=== PATIENT | female | born 1950 | race Caucasian/White ===

== ENCOUNTER → 2020-04-13 10:21 | Outpatient (BNVA) | payer MEDICARE, SELFPAY | PROVIDERS: PCP Internal Medicine Sports Medicine; Referring Provider Internal Medicine Sports Medicine; Visit Provider Surgery | DX: Z48.815 Encounter for surgical aftercare following surgery on the digestive system (principal) | CPT/HCPCS: 99024; 99212 ==

== ENCOUNTER → 2020-04-27 10:04 | Outpatient (BNVA) | payer MEDICARE, SELFPAY | PROVIDERS: PCP Internal Medicine Sports Medicine; Visit Provider Surgery | DX: Z09 Encounter for follow-up examination after completed treatment for conditions other than malignant neoplasm (principal); Z87.19 Personal history of other diseases of the digestive system; Z90.49 Acquired absence of other specified parts of digestive tract | CPT/HCPCS: 99212 ==

== ENCOUNTER 2021-07-10 08:08 | Outpatient (REF) | payer MEDICARE, SELFPAY | END 2021-07-10 08:09 | disposition home or self-care (01) | LOC: HO.HMGCLDS 08:08 | PROVIDERS: Visit Provider Internal Medicine | DX: Z20.822 Contact with and (suspected) exposure to COVID-19 (principal) | CPT/HCPCS: C9803; U0003; U0005 ==

== ENCOUNTER 2023-07-18 14:23 | Emergency (ER) | payer MEDICARE, SELFPAY ==
--- NOTE | ~2023-07-18 | XR_ITS ---
EXAMINATION: XR LUMBOSACRAL SPINE CLINICAL INFORMATION: Lumbar pain COMPARISON: CT scan abdomen pelvis March 29, 2020 TECHNIQUE: 2 views of lumbar spine FINDINGS: Lumbar vertebrae have normal height and alignment. No fracture or bone destruction. Lumbar disc heights are normal. Mild degenerative facet joint arthrosis at the lower lumbar spine. Normal sacroiliac joints. Vascular calcification of the distal aorta without evidence of aneurysm. Surgical clips right upper quadrant of abdomen. XR/XR lumbar spine 2-3V IMPRESSION: 1. No acute abnormality. 2. Mild degenerative spondylosis of lumbar spine.
[2023-07-18 14:29] VITALS: BP 155/79; PULSE 89; RESP 16; TEMP 37.4; O2SAT 97; BMI 28.3
--- NOTE | 2023-07-18 14:44 | ED_ITS ---
HPI - Back Pain/Injury General Chief Complaint: Back Pain/Injury Stated Complaint: back pain Time Seen by Provider: 07/18/23 15:30 Source: patient and family (friend) Mode of arrival: wheelchair Limitations: no limitations History of Present Illness HPI Narrative: 73 year-old female with history of sciatic nerve injury and bilateral neuropathy arrives to emergency department with worsening right buttocks pain that radiates down the front and back of her thigh for three weeks since 06/27/2023. She states she had no inciting accidents or falls. The patient states she is unable to ambulate and perform daily activities due to the pain. Unlike prior episodes of sciatic pain, she reports her current pain has not resolved. Gabapentin, NSAIDs, and prednisone have not provided any relief. She denies fever, malaise, night sweats, weight loss, chest pain, palpitations, shortness of breath, dyspnea, lightheadedness, dizziness, changes in vision, loss of vision, double vision, changes in bowel movements, nausea, vomiting, and changes in urination. Pertinent past history: other (prior sciatic nerve pain) Onset (ago): week(s) (3 weeks) Timing: constant Quality: tingling and other (pinching) Radiation: right upper leg Exacerbating factors: sitting upright and walking Relieving factors: supine Context: other (atraumatic) Treatments prior to arrival: other medications (gabapentin and prednisone) Work related injury: No Related Data Home Medications Medication Instructions Recorded Confirmed acetaminophen 500 mg tablet 500 mg PO Q6H PRN 04/13/20 04/27/20 (Tylenol Extra Strength) conj estrogen-medroxyprogesterone 1 tab PO DAILY 04/13/20 04/27/20 0.45 mg-1.5 mg tablet gabapentin 300 mg capsule 300 mg PO QID 04/13/20 04/27/20 Previous Rx's Medication Instructions Recorded cyclobenzaprine 5 mg tablet 5 mg PO TID PRN muscle spasm 7 07/18/23 days #21 tabs Allergies Allergy/AdvReac Type Severity Reaction Status Date / Time codeine [CODEINE] Allergy Intermediate VOMITING Verified 07/18/23 14:29 Review of Systems Constitutional: Constitutional: Reports no additional constitutional complaints, Denies chills, Denies fever(s) and Denies night sweats Eyes: Eyes: Reports no additional eye complaints, Denies blurry vision, Denies change in vision, Denies diplopia, Denies eye discharge, Denies loss of vision and Denies eye pain ENT: Denies dizziness Cardiovascular: Cardiovascular: Reports no additional cardiovascular complaints, Denies chest pain, Denies lightheadedness, Denies Loss of Consciousness and Denies dyspnea Respiratory: Respiratory: Reports no additional respiratory complaints and Denies dyspnea Gastrointestinal: Gastrointestinal: Reports no additional gastrointestinal complaints, Denies abdominal pain, Denies melena, Denies hematochezia, Denies change in bowel habits and Denies change in stool character Genitourinary: Genitourinary: Denies hematuria, Denies urinary frequency, Denies dysuria, Denies urinary incontinence, Denies urinary hesitancy and Denies urinary urgency Musculoskeletal: Musculoskeletal: Reports no additional musculoskeletal complaints, Reports back pain, Denies numbness and Denies tingling Neurologic: Denies dizziness, Denies loss of vision, Denies numbness and Denies tingling Psychiatric: Psychiatric: Reports no additional psychiatric complaints Endocrine: Endocrine: Reports no additional endocrine complaints Hematologic/Lymphatic: Hematologic/Lymphatic: Reports no additional hematologic/lymphatic complaints Allergic/Immunologic: Allergic/Immunologic: Reports no additional allergic/immunologic complaints [facility] Past Medical History Attestation statement: The following information was validated with the patient. Source: old records reviewed and nursing notes reviewed Onset Date is defined in the Problem List Problems that require an onset date and time if occurred within 24 hrs of arrival to the ED Aortic Dissection and Rupture; Neurologic impairment; Cardiopulmonary Arrest; Endotracheal Intubation; Insertion or Replacement of Mechanical Circulatory Assist Device Medical History Acute cholecystitis due to biliary calculus Sciatica Burn Surgical History S/P laparoscopic procedure Family History Family History Mother No problems noted. Father No problems noted. Sister No problems noted. Sister No problems noted. Social History Social History Alcohol intake: never Advance Directives: No Advance Directives Information Provided: No Physical Exam Vital Signs: Vital Signs: Last Vital Signs Temp 99.4 F 07/18/23 14:29 Pulse 70 07/18/23 16:00 Resp 18 07/18/23 16:00 BP 155/79 H 07/18/23 14:29 Pulse Ox 98 07/18/23 16:00 O2 Del Method Room Air 07/18/23 16:00 BMI result Body Mass Index 28.3 Const: General: cooperative, no acute distress, alert and awake Nutritional Appearance: well nourished Orientation/consciousness: patient oriented x3 Limitations: no limitations HEENT: Head: Yes normal to inspection and Yes atraumatic Ears: hearing grossly normal bilaterally and external ears normal General nose exam: Normal external nose present, no nasal discharge noted and no epistaxis Face and sinus: Yes normal facial exam, No abrasion and No laceration Mouth: Normal oral and palatal mucosa present, no drooling and no muffled voice Eyes: General: appearance normal, both eyes and all related structures Periorbital: periorbital findings normal Eyelids: Yes eyelids normal Conjunctivae: conjunctivae normal Pupils: Equal, round and reactive pupils present EOM: EOMs intact bilaterally Neck: Neck: Yes normal visual inspection, Yes full ROM and Yes no lymphadenopathy Chest: Chest palpation & inspection: normal inspection of the chest Resp: Effort & Inspection: normal respiratory effort and able to speak in complete sentences GI: Inspection: Yes normal to inspection : General: Yes no CVA tenderness Back/Spine/Pelvis: Back: no CVA tenderness Cervical Spine: normal cervical lordosis and cervical ROM normal Thoracic/Lumbar Spine: thoracic and lumbar spine normal to inspection Pelvis: no pain with anterior-posterior compression Neuro: General: patient oriented x3 and moves all extremities Cranial nerves: Yes Equal, round and reactive pupils present Cognition (Neuro): normal cognition Motor exam (neuro): 5/5 motor strength present throughout Sensory Exam: Normal double simultaneous stimulation for sensation Coordination: [id number] test normal Extrem: General: Yes normal to inspection, Yes full ROM and Yes capillary refill normal Psych: Appearance: grossly normal Mental Status: mental status grossly normal Affect: normal affect Attitude: cooperative Thought process: Normal thought process present Thought content: Normal thought content present Insight: Good insight present (Psych) Course Course Course Narrative: This is an RME: Additional HPI, ROS, PE not included below will be deferred to primary provider. Patient is a 73-year-old female who presents emergency department for evaluation of right lower back pain atraumatic in nature radiating to the right lower extremity with intermittent paresthesia. Denies genitourinary symptoms. Has trialed outpatient course of prednisone and increased gabapentin without any improvement. Plan: XR, placed in waiting room pending bed availability for pain management. Medications Administered Discontinued Medications Generic Name Dose Route Start Last Admin Trade Name Andriy PRN Reason Stop Dose Admin Diazepam 5 mg 07/18/23 15:55 07/18/23 16:02 Diazepam 10 Mg/2 Ml Cartridge IM 07/18/23 15:56 5 mg STAT STA Administration Medical Decision Making Medical Decision Making [facility] Narrative: Patient is a 73 year old assigned female at with a history of sciatica presenting to the emergency department today with right sided low back pain. Patient's physical exam was unremarkable. Patient's lumbar x-ray showed no acute process. Patient was given IM valium which resolved her pain to the point where she was able to easily ambulate while in the department. I explained my physical exam findings as well as all test results to the patient. I answered all questions asked by the patient. I stressed the importance of the patient taking her medication as prescribed. I stressed the importance of the patient following up with her primary care provider and a cryptologic support specialist. I stressed the importance of the patient returning to the emergency department immediately if her symptoms were to worsen or if she were to develop any dizziness, shortness of breath, difficulty breathing, chest pain, blurry vision, loss of vision, nausea, vomiting, abdominal pain, fever, chills, back pain, or any other complaints. Patient verbalized agreement and understanding with this treatment plan and discharge. Differential Diagnosis Differential Diagnoses: The differential diagnosis associated with the presentation includes Sciatica Back pain Muscle spasm Admission/Observation Consideration of admission/observation: Escalation of care including admission/observation considered Patient would have been admitted to the hospital had her work up had any findings where hospital admission was appropriate and her clinical presentation warranted hospital admission. Independent Interpretation I performed an independent interpretation of an: Plain X-Ray Interpretation: My interpretation is in agreement with the radiologist's impression of this imaging study. EXAMINATION: XR LUMBOSACRAL SPINE CLINICAL INFORMATION: Lumbar pain COMPARISON: CT scan abdomen pelvis March 29, 2020 TECHNIQUE: 2 views of lumbar spine FINDINGS: Lumbar vertebrae have normal height and alignment. No fracture or bone destruction. Lumbar disc heights are normal. Mild degenerative facet joint arthrosis at the lower lumbar spine. Normal sacroiliac joints. Vascular calcification of the distal aorta without evidence of aneurysm. Surgical clips right upper quadrant of abdomen. XR/XR lumbar spine 2-3V IMPRESSION: 1. No acute abnormality. 2. Mild degenerative spondylosis of lumbar spine. Dictated By: Gary Jerome MD Signed By: Electronically signed by Gary Jerome MD 07/18/23 8048 Radiology Impression Discussion of test interpretation with radiology: I have reviewed the radiologist's reading. Prescription Management I considered prescription management with: Pain Medication (patient prescribed pain medication) Critical Care Time Critical Care Time Critical Care Time: Yes Total Critical Care Time: 35 Attestation: I spent 35 minutes of Critical Care Time with this patient. This does not include time spent on separately reported billable procedures. Discharge Plan Discharge Clinical Impression: Back pain, Muscle spasm Patient Disposition: Home, Self-Care Instructions: Muscle Spasm (ED), Back Pain (ED) Additional Instructions: Follow up with your primary care provider and a cryptologic support specialist. Attend your PT appointment. Return to the emergency department immediately if your symptoms worsen or if you develop any dizziness, shortness of breath, difficulty breathing, chest pain, blurry vision, loss of vision, nausea, vomiting, abdominal pain, fever, chills, back pain, or any other complaints. Prescriptions: New cyclobenzaprine 5 mg tablet 5 mg PO TID PRN (Reason: muscle spasm) 7 Days Qty: 21 0RF No Action Prempro 0.45-1.5 mg tablet 1 tab PO DAILY gabapentin 300 mg capsule 300 mg PO QID acetaminophen [Tylenol Extra Strength] 500 mg tablet 500 mg PO Q6H PRN Referrals: [facility] [Provider Group] (Call to establish and follow up with an orthopedic provider for your back pain.) [facility] [Provider Group] (Call to establish and follow up with a cryptologic support specialist. ) Qing Robb MD [Primary Care Provider] - Stand Alone Forms: Work/School Release Interventions: ED Discharge Assessment Last Done: 07/18/23 16:59 Discharge Date/Time: 07/18/23 16:59 Print Language: British
[2023-07-18 16:00] VITALS: PULSE 70; RESP 18; O2SAT 98
[2023-07-18] MEDS: diazePAM 10 MG/2 ML CARTRIDGE 5 MG IM (16:02)
--- NOTE | 2023-07-18 16:05 | PC.NURSE ---
Pt medicated per MAR awaiting improvement in symptoms.
--- NOTE | 2023-07-18 16:57 | PC.NURSE ---
Pt ambulatory to bathroom with slow steady gait, reports positive relief from previously administered pain med. Plan for dc home.
== END 2023-07-18 16:59 | disposition home or self-care (01) ==
PROVIDERS: Emergency Provider Emergency Medicine; PCP Internal Medicine
DX: M54.50 Low back pain, unspecified (principal); M62.838 Other muscle spasm; Z79.899 Other long term (current) drug therapy
CPT/HCPCS: 72100; 96372; 99284; J3360